=== PATIENT | male | born 1995 | race Caucasian/White ===

== ENCOUNTER 2022-04-12 09:48 | Outpatient (CLI) | payer OTHER | END 2022-04-12 09:49 | disposition home or self-care (01) | LOC: CSHWCC 09:48 | PROVIDERS: ATTEND Preventive Medicine Undersea and Hyperbaric Medicine | DX: L89.524 Pressure ulcer of left ankle, stage 4 (principal); L89.611 Pressure ulcer of right heel, stage 1 | CPT/HCPCS: 99213; G0463 ==

== ENCOUNTER 2022-04-26 10:36 | Outpatient (CLI) | payer OTHER | END 2022-04-26 10:37 | disposition home or self-care (01) | LOC: CSHWCC 10:36 | PROVIDERS: ATTEND Nurse Practitioner Family | DX: L89.524 Pressure ulcer of left ankle, stage 4 (principal) | CPT/HCPCS: 29581; 97607 ==